=== PATIENT | female | born 1960 | race Caucasian/White ===

== ENCOUNTER → 2017-01-01 | Outpatient (CLI) | payer OTHER, MEDICARE | LOC: RAD 13:28 | PROVIDERS: ATTEND Neurological Surgery | DX: M25.78 Osteophyte, vertebrae (principal); M48.02 Spinal stenosis, cervical region | CPT/HCPCS: 72040 ==

== ENCOUNTER → 2017-01-02 | Outpatient (REF) | payer OTHER, MEDICARE | LOC: LAB 09:58 | PROVIDERS: ATTEND Physician Assistant Surgical | DX: R53.83 Other fatigue (principal); Z13.6 Encounter for screening for cardiovascular disorders | CPT/HCPCS: 80061; 84443 ==

== ENCOUNTER → 2017-01-08 | Outpatient (CLI) | payer OTHER, MEDICARE | LOC: RAD 09:57 | PROVIDERS: ATTEND Physician Assistant Surgical | DX: Z12.31 Encounter for screening mammogram for malignant neoplasm of breast (principal); R92.2 Inconclusive mammogram ==

== ENCOUNTER → 2017-01-16 | Outpatient (CLI) | payer OTHER, MEDICARE | LOC: RAD 12:52 | PROVIDERS: ATTEND Physician Assistant Surgical | DX: R92.2 Inconclusive mammogram (principal) ==

== ENCOUNTER 2017-02-27 12:15 | Outpatient (RCR) | payer OTHER, MEDICARE ==
--- NOTE | 2017-01-24 13:31 | PT/OT/ST INITIAL EVALUATION ---
Department of Health and Human Services Form Approved [facility] Care Financing Administration OMB No. [id number] PLAN OF CARE/ASSESSMENT FOR OUTPATIENT REHABILITATION (Complete for Initial Claims Only) 1. PATIENT'S NAME Mary Sinha 2. ACC # [id number] [facility]. [facility] [id number] 4. PROVIDER NO. [id number] 5. TYPE: PT 6. PRIOR HOSPITALIZATION NA 7. PRIMARY DX Post C5 to 6 fusion 8. SECONDARY DX Weakness, abnormal posture and cervicalgia. Left upper extremity pain, left lower extremity pain. 9. ONSET DATE April 2016 surgery 10. REFERRAL DATE 01/09/2017 11. SOC. DATE 01/18/2017 12. TIME OF EVAL 2:40 p.m. to 3:32 p.[address]. [address]YS[address]IAN Dr. Chris Castaneda 13. CHARGES/UNITS PT evaluation 50241, high complexity Manual therapy 17719, 1 unit Therapeutic exercise 63664, 1 unit 14. G CODES The Neck Disability Index rated the patient as [id number] 50% limited and the goal is G8985 less than or equal to 5% limited in order to be able to improve mobility and strength for performing light continuing education dean with minimal deviation for 20 minutes. 15. PRIOR LEVEL OF FUNCTION; PERTINENT HISTORY (Prior therapy results, reason for referral.) S: Prior to therapy the patient consented to today's evaluation and treatment. The patient is a 56-year-old female referred to therapy by Dr. Castaneda to address functional limitations post C5 to 6 fusion in April 2016. Mechanism of injury: The patient has a diagnosis of lupus and has several comorbidities, not all of which are stable conditions. The patient reports that she had a C5-6 fusion in April 2016 and she has been in to therapy at least one other time for this same diagnosis and previously for other diagnoses. Primary Complaint: The patient reports that it hurts to hold her head up and her head feels heavy. She has pain in her left leg. Hardly any pain in her right leg. She has pain in her left arm and pain in her neck, mostly on the left side. The patient reports that the pain is getting worse lately, which is why she went back to her doctor and she states the pain has varied since she was last in physical therapy. Occupational and social history: The patient has been on disability since 1992 or 1993. Functional performance/Prior level of function: The patient reports that she is able to do the dishes, cook, make the beds, and do the laundry; however, she is not able to dust or vacuum partly due to her lack of vision. Pain level: The patient rates the current pain level as 5 to 6/10 and it is not constant. The patient describes the pain as a pinching pain. Obstacles to delivery of care: The patient has several comorbidities. The patient's lupus has affected her vision and she is very sensitive to light, which leads to her wanting to hold her head down, likely causing some of the issues with neck pain. Aggravating factors: Include leaning forward, bending forward, and it hurts more when she wakes up. Relieving factors: Include taking extra gabapentin and massaging her neck. Diagnostic testing: None noted Past medical history: Includes osteoarthritis, depression which is controlled, seizures and epilepsy which she states is controlled. She has not had any in the last few months and she is taking a new seizure medication. 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 When the patient has seizures, she states that she generally stares off and sucks her lips and just let her be. Also has lupus, kidney problems due to lupus and she is not sure of the exact nature of the kidney problems. Past surgical history: Includes having several surgeries on her eyes, , hysterectomy, C5 to 6 fusion, which the physician states is doing well, which was done almost 1 year ago. Current medications: There is a list in the chart including estradiol, B12, multivitamin, gabapentin, Restasis, fluorometholone, Vimpat, herbal supplements such as a multivitamin. Leisure activities: Include starting a [place] chi class at the [facility] and she just did her first day of enhanced fitness at the [facility]. Activity level: Listed as likes to read, although it is difficult. Watching TV and going to the [facility]. Personal health rating: Listed as good. Patient's Goal: The patient's goal for physical therapy is to loosen up and make it easier to do things and to move. 16. INITIAL ASSESSMENT/SAFETY PRECAUTIONS/MEDICAL COMPLICATIONS (Level of function at start of care. Be specific, use objective measures, list problems.) O: APPEARANCE AND OBSERVATION: The patient sits and stands with significantly kyphotic posture due to wanting to keep her head down and not having the light be so intense in her eyes. She has decreased range of motion into pure cardinal movements of her neck. The patient falls into the complex category due to the fact that she has abnormal posture and asymmetry. She has limited active range of motion of the neck and weakness throughout. Participation is limited due to vision and lupus symptoms and her pain varies and is an unstable factor. PALPATION: The patient is tender to palpation through bilateral sides of her neck, especially on to the right side of her neck through the lower cervical spine and on the left side through the upper cervical spine. SPECIAL TESTS: Overall intact bilateral upper extremities to light touch, however, the right side is diminished compared to the left, which has been this way since . The patient does have limited range into upper cervical flexion with long flexion due to tightness. RANGE OF MOTION/FLEXIBILITY: Cervical extension 13 degrees with a pinching, stabbing pain on the left side of neck. Flexion 41 degrees, side bending left 23 degrees, right 28 degrees. Rotation left 51 degrees, right 50 degrees with reports of tightness to the right. STRENGTH: No formal manual muscle testing was performed due to already knowing the neck is significantly weak due to not being able to hold her head up straight and her head feeling heavy. Upon observation would rate it 3-/5. TODAY'S TREATMENT: Includes the initial PT evaluation followed by soft tissue massage to bilateral upper and lower cervical spine followed by therapeutic exercise, working to strengthen the deep neck flexors and extensors. 17. INITIAL POC: (Specify procedures, modalities, short and custodial goals) A: This patient presents with the diagnosis of post-cervical C5-6 fusion with functional limitations of weakness, abnormal posture, and cervicalgia. The patient would benefit from physical therapy in order to introduce improved motor control and activation of the deep neck flexors and extensors to help support her neck in order to be able to hold her head up to decrease strain to the neck. PROGNOSIS: The patient has a fair prognosis for increased overall functional capacity with regular therapy attendance and compliance with prescribed home exercise program PROBLEMS/IMPAIRMENTS/FUNCTIONAL LOSS: The patient has lupus, which has led her to have very poor eyesight and is very sensitive to light. The patient's right side upper extremity and lower extremity are significantly weaker and has less coordination as compared to her left, which is a longstanding issue that occurred at . SHORT TERM GOALS: 1. The patient was rated by the Neck Disability Index as [id number] 50% limited and the goal is G8985 less than or equal to 5% limited in order to improve mobility to be able to do light continuing education dean with minimal deviation. 2. The patient is to have a decrease in neck pain, left upper extremity pain and left lower extremity pain to less than or equal to 2/10 in 6 weeks in order to improve mobility for light continuing education dean with minimal deviation. 3. The patient is to have an increase in manual muscle testing and strengthening of her neck to be able to hold an upright posture in order to be able to do chores around the house for 15 to 20 minutes in order to decrease strain to her neck and improve independence in 6 weeks. 4. The patient is to be independent with progressive home exercise program P: Plan to treat this patient 2 to 3 times a week for 6 weeks to address the above functional limitations. Treatment to include modalities for pain and inflammation, manual therapy interventions, therapeutic exercise, active and passive range of motion, gait training, balance training, neural reeducation and patient education and prescription of progressive home exercise program as tolerable. 18. FREQUENCY 2 to 3 times per week 19. DURATION 6 weeks 20. FUNCTIONAL LEVEL (End of claim period) 21. PHYSICIAN SIGNATURE ? ON FILE OR ENTER HERE: 22. DATE: I certify the need for these services furnished under this plan of care and if for partial hospitalization. 23. CERTIFICATION FROM THROUGH FORM [id number]
[~2017-02-27 12:15] MED LIST: ACET325T38 PO; ASPI-479 PO; CARB1DRO5 OU; CLON0.5T25 PO; CYCL10TA45 PO; ESTR2TAB4 PO; FURO80TA PO; HYPR15DR6 OU; KCL20TCR PO; KETO5DRO2 OU; LEVE500T PO; MULT-297 PO; NF-LOTEOS OU; OXCA300T4 PO; PRED20TA PO; TRM50T PO; TYLENOL PO; VIT1TABL PO
== END 2017-03-08 12:00 | disposition home or self-care (01) ==
LOC: PT 12:15
PROVIDERS: ATTEND Neurological Surgery
DX: Z48.89 Encounter for other specified surgical aftercare (principal); Z98.1 Arthrodesis status
CPT/HCPCS: 97110; 97140; 97163; G8984; G8985; G8986